=== PATIENT | female | born 1985 | race Caucasian/White ===

== ENCOUNTER → 2020-01-07 07:46 | Outpatient (CLI) | payer OTHER, MEDICAID, SELFPAY ==
--- NOTE | 2020-01-07 07:50 | DI.US.S_ITS ---
PROCEDURE: US OB >= 14 WEEKS FETUS INDICATIONS: ANATOMY OUTSIDE/PRIOR DATING DATA: First dating scan (date and location): [facility] Estimated date of delivery (LEN) from first dating scan: 04/17/2019 . TECHNIQUE: Real-time scanning was performed of the fetus, with image documentation and biometric measurements. Endovaginal scanning: No COMPARISON: None. FINDINGS: General: A single living intrauterine gestation is present. Presentation: Vertex. Placenta: Placental position is posterior , without previa. Amniotic fluid index: 15.8 cm, normal range is 5-24 cm. heart rate: 119 beats per minute. Maternal cervical canal: 3.1 cm long. Normal lower limit is 2.5 cm. biometrics: Biparietal diameter: 35 weeks 2 days Head circumference: 36 weeks 3 days Abdominal circumference: 34 weeks 3 days Femur length: 34 weeks 2 days Estimated gestational age from initial scan: 34 weeks 2 days Composite gestational age from present scan: 35 weeks 1 day Estimated weight and percentile: 2493 g; 57th percentile Measurement variability for biometric dating: +/- 7 days from 14 weeks to 15 weeks 6 days gestation, +/- 10 days from 16 weeks to 21 weeks 6 days gestation, +/- 2 weeks from 22 weeks to 27 weeks 6 days gestation, +/- 3 weeks for 28 weeks gestation or later. weight reference: 4500 g or EFW >90/95% is considered macrosomia or large for gestational age. EFW <10% is small for gestational age. EFW 5% or less is considered intra-uterine growth restriction. Anatomic survey: Neuro: Ventricles are non-dilated at less than 10 mm. Cisterna magna is normal at 3-11 mm. Cerebellum is normal in size and morphology. Nuchal skin fold: Normal at less than 6 mm between 14-21 weeks gestational age. Face: Not well seen. Spine: No evidence for spina bifida. Heart: 4-chambered heart is present, with normal ventricular outflow tracts. Diaphragm: Diaphragm is intact. Stomach: Left-sided stomach is present. Kidneys: No hydronephrosis. Normal is less than 5 mm in 2nd trimester, less than 7 mm in 3rd trimester. Cord: Not well seen. Bladder: Normal in size. Extremities: Suboptimally visualized. IMPRESSION: 1. Single living IUP redemonstrated and interval growth is normal with estimated weight 57th percentile. 2. Limited anatomic survey secondary to advanced gestational age. Dictated by: Joel Negron [facility] Interpreted: Riley Vegas MD on 01/07/2020 at 9:33 Approved by: Riley Vegas M.D. on 01/07/2020 at 17:19
[2020-01-07 09:04] LABS: Add Manual Diff / Slide Review NO; Basophils Absolute Auto 0 /uL (0-100); Basophils Percent Auto 0.5 % (0-2); Eosinophils Absolute Auto 100 /uL (0-450); Eosinophils Percent Auto 1.2 % (2-4); Hematocrit 35.1 % (36-46); Hemoglobin 11.9 g/dL (12.0-16.0); Lymphocytes Absolute Auto 2000 /uL (1100-4500); Mean Corpuscular HGB Conc 33.8 % (30-36); Mean Corpuscular Hemoglobin 33.4 PG (26-34); Mean Corpuscular Volume 98.9 fL (80-100); Monocytes Absolute Auto 900 /uL (0-900); Monocytes Percent Auto 10.4 % (3-14); Neutrophils Absolute Auto 5600 /uL (1500-7000); Neutrophils Percent Auto 64.9 % (50-75); Platelet Count 265 X10^3/uL (150-400); Red Blood Cell Count 3.55 X10^6/uL (4.0-5.2); Red Cell Distribution Width 13.6 % (11.6-14.8); White Blood Cell Count 8.7 X10^3/uL (4.5-11.0)
[2020-01-07 09:08] LABS: Hemoglobin A1C% w Est Avg Glu 4.9 % (4.0-6.0)
[2020-01-07 09:10] LABS: Appearance Urine UA CLEAR; Bilirubin Urine UA NEGATIVE (NEGATIVE); Color Urine UA YELLOW; Glucose Urine UA NEGATIVE (Negative); Ketones Urine UA NEGATIVE (NEGATIVE); Leukocyte Esterase Urine UA NEGATIVE (NEGATIVE); Nitrite Urine UA NEGATIVE (Negative); Occult Blood Urine UA NEGATIVE (Negative); Protein Urine UA NEGATIVE (Negative); Urobilinogen Urine UA 0.2 E.U./dL (0.2)
[2020-01-07 09:13] LABS: GTT (PREG) 1 Hour PP 50gm Dose 86 mg/dL (76-139)
[2020-01-07 16:44] LABS: Hepatitis B Surface Antigen NEGATIVE s/c (NEGATIVE); Rubella Antibody IgG 55.7 IU/mL (>15)
[2020-01-07 17:11] LABS: HIV 1 & 2 Ab/Ag 4th Gen Combo NEGATIVE (NEGATIVE); Hep C Virus Ab w/Reflex Quant NEGATIVE s/c (NEGATIVE)
[2020-01-08 04:36] LABS: RPR Screen Non Reactive (Non Reactive)
[2020-01-08 09:14] LABS: Varicella IgG Antibody 511 index (Immune >165)
== END ==
PROVIDERS: PCP Family Medicine; Referring Provider Family Medicine; Visit Provider Family Medicine
DX: Z34.83 Encounter for supervision of other normal pregnancy, third trimester (principal); Z3A.35 35 weeks gestation of pregnancy
CPT/HCPCS: 36415; 76811; 80055; 81003; 82950; 83036; 86787; 86803; 86850; 86900; 86901; 87086; 87389

== ENCOUNTER → 2020-01-11 16:17 | Outpatient (CLI) | payer OTHER, MEDICAID, SELFPAY ==
[2020-01-11 20:40] LABS: Ur Creatinine Normal (Normal); Ur Specific Gravity Normal (Normal); Urine pH Normal (Normal)
[2020-01-11 20:41] LABS: UR Morphine/Opiate cutoff 300 Negative (Negative); Urine Amphetamines Negative (Negative); Urine Barbiturates Negative (Negative); Urine Benzodiazepines Negative (Negative); Urine Cocaine Negative (Negative); Urine MDMA Negative (Negative); Urine Methadone Negative (Negative); Urine Methamphetamines Negative (Negative); Urine Oxycodone Negative (Negative); Urine Phencyclidine Negative (Negative); Urine Tetrahydrocannabinol Negative (Negative); Urine Tricyclic Antidepressant Negative (Negative)
== END ==
PROVIDERS: PCP Family Medicine; Visit Provider Family Medicine
DX: Z34.83 Encounter for supervision of other normal pregnancy, third trimester (principal); Z3A.34 34 weeks gestation of pregnancy
CPT/HCPCS: 80305; 87491; 87591

== ENCOUNTER 2020-01-19 15:49 | Outpatient (CLI) | payer OTHER, MEDICAID, SELFPAY | END 2020-01-19 17:45 | disposition home or self-care (01) | LOC: LABOR 16:28 → OB 01-20 10:24 | PROVIDERS: PCP Family Medicine; Referring Provider Family Medicine; Visit Provider Family Medicine | DX: O26.23 Pregnancy care for patient with recurrent pregnancy loss, third trimester (principal); Z3A.36 36 weeks gestation of pregnancy | CPT/HCPCS: 59025; 59050; G0378; G0379 ==

== ENCOUNTER → 2020-01-25 16:27 | Outpatient (CLI) | payer OTHER, MEDICAID, SELFPAY ==
[2020-01-26 12:54] LABS: Strep Grp B PCR POS for Grp B Strep
== END ==
PROVIDERS: PCP Family Medicine; Visit Provider Family Medicine
DX: Z34.83 Encounter for supervision of other normal pregnancy, third trimester (principal); Z20.2 Contact with and (suspected) exposure to infections with a predominantly sexual mode of transmission; Z3A.36 36 weeks gestation of pregnancy
CPT/HCPCS: 87210; 87653

== ENCOUNTER 2020-02-17 17:18 | Observation (INO) | payer OTHER, MEDICAID, SELFPAY ==
--- NOTE | 2020-02-17 19:30 | PM.OBTRLD ---
Visit Information Visit Information Date of evaluation: 02/17/20 Primary OB Provider: Jose Sánchez On-call OB Provider: Emilia Sahu Reason for Evaluation: Yes rule out labor Comments/Additional reasons for admission: 34 YO @ 40wks 1day here for evaluation of mild cramping with low back pain. Lives in [place] and just wants to check and be safe before going home. +FM. No VB or LOF. Uncomfortable but not yet breathing through contractions. Uncomplicated PN care w/ . States provider usually unable to reach her cervix. Vital Signs Vital Signs: BP 112/74, HR-90bpm, T97.0 F Temporal PFSH Medical History Anxiety (Acute) Depression (Acute) History of prediabetes (Acute ~2017) Late care affecting (Acute ~12/2019) Migraine (Acute) (spontaneous vaginal delivery) (Acute ~2006) UTI (urinary tract infection) (Acute ~12/2019) Surgical History H/O dilation and curettage (Acute ~08/2016) Lamar teeth removed (Acute) Family History Mother History of radical hysterectomy Father Asthma Grandfather No problems noted. Grandmother No problems noted. Grandfather Stroke Grandmother Congestive heart failure Embolism and thrombosis Sister Metastatic breast cancer Sister No problems noted. 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 Evaluation Evaluation Baseline heart rate: 125 Variability: Moderate (11-25) monitor accelerations: Present monitor decelerations: Absent Contraction Frequency (minutes): 6 Uterine Contraction Intensity: Mild Category of Tracing: Reactive Comments: RN unable to reach cervix on initial exam. Repeat CE deferred after 2 hours of observation as there has been no change and ctx remain irregular and mild. Diagnosis, Plan/Disposition Final Diagnosis (1) : Status: Acute Problem details: Mild, irregular uterine cramping, not in labor Plan/Disposition Plan: Given 2 hours of observation w/ walk and return and no change noted during that time, will discharge to home. Pt plans to go to her mother's in [place] for the night. Encouraged her to call and return if contractions intensify, LOF, VB or decreased FM. Pt agrees and will follow-up with her primary OB provider as previously scheduled. OB Disposition: home
== END 2020-02-17 19:35 | disposition home or self-care (01) ==
PROVIDERS: Admitting Provider Nurse Practitioner Obstetrics & Gynecology; PCP Family Medicine; Referring Provider Nurse Practitioner Obstetrics & Gynecology; Visit Provider Nurse Practitioner Obstetrics & Gynecology
DX: O48.0 Post-term pregnancy (principal); Z3A.40 40 weeks gestation of pregnancy
CPT/HCPCS: 59025; 59050; G0378; G0379

== ENCOUNTER 2020-02-22 07:47 | Inpatient (IN) | payer OTHER, MEDICAID, SELFPAY ==
--- NOTE | 2020-02-22 08:05 | P.HPOB_ITS ---
OB HPI Date/Time Date of admission: 02/22/20 Date Patient Seen: 02/22/20 Time Patient Seen: 08:05 History of Present Condition Chief complaint: Labor & Delivery : 5 Para: 2 Estimated Date of Delivery: 02/18/20 Narrative: Yandy Davis is a 34 year old female G5 para 2 estimated due date of 02/18/2020 40 weeks and 4 7th days consistent with 3rd trimester ultrasound dating. Patient comes into the labor and delivery floor in active labor. Patient states she started idalia approximately 6:00 a.m. this morning. Patient arrived to the center an hour later. On examination her vital signs were stable she was afebrile. Contractions were uncomfortable. Patient had an IV started. COVID swab was done. Patient is GBS positive and was given 1 dose of penicillin. On examination. Patient had heart tones were 130 t o 140s category 1 tracing. Her contractions were every 3-5 minutes. She had no loss of fluid. Her cervical exam showed her to be 6 cm 0 to +1 station 90% effaced. Intact membranes. History of Present care: limited care Dating criteria: based on 3rd trimester US only Ultrasounds: normal mid trimester US Obstetrical complications: none Medical complications: none Preadmission Labs Blood type: A (+) positive -: Antibody screen: negative, GBS status: positive, HBsAG: negative, HIV: negative and RPR/VDLR: negative -: Chlamydia screen: not detected and Gonorrhea screen: not detected -: Rubella: immune and Varicella: immune HCAB: negative 1 hr GTT: 86 PFSH Medical History Anxiety Depression History of prediabetes (~2017) Late care affecting (~12/2019) Migraine (spontaneous vaginal delivery) (~2006) UTI (urinary tract infection) (~12/2019) Surgical History H/O dilation and curettage (~08/2016) Seltzer teeth removed Family History Mother History of radical hysterectomy Father Asthma Grandfather No problems noted. Grandmother No problems noted. Grandfather Stroke Grandmother Congestive heart failure Embolism and thrombosis Sister Metastatic breast cancer Sister No problems noted. 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) occupational status: unemployed current occupational exposures/hazards: No Previous occupational history: SHIP YARD ELECTRICAL PERSON reji/hinduism: Quaker special reji needs: No Smoking Status: Never smoker second hand exposure: No alcohol intake: former (pre- : occasional ) substance use type: does not use Meds Home Medications and Allergies Home Medications Medication Instructions Recorded Confirmed Type omega-3 fatty acids 1,000 mg 1,000 mg PO DAILY 01/06/20 02/16/20 History capsule prenat.vits,margarita,[id number] 1 tab PO DAILY 01/06/20 02/16/20 History omeprazole 20 mg capsule,delayed 20 mg PO DAILY #60 cap 02/09/20 02/16/20 Rx release Allergies Allergy/AdvReac Type Severity Reaction Status Date / Time titanium Allergy Intermediate Contact Verified 02/16/20 16:13 Dermatitis yves Allergy Intermediate Contact Uncoded 02/16/20 16:13 Dermatitis sodium cally sulphate Allergy Intermediate Rash Uncoded 02/16/20 16:13 Exam Narrative Exam Narrative: . General: Alert no apparent distress. Affect is appropriate. Idalia it is uncomfortable. HEENT: Neck is supple without lymphadenopathy pupils equal round and reactive. Cardio: S1-S2 regular rate and rhythm. Respiratory: Lungs clear to auscultation. Abdomen: Gravid. Extremities: Normal deep tendon reflexes trace edema. Objective Labs Result Diagrams: 02/22/20 07:50 Assessment and Plan Assessment and Plan Assessment and Plan narrative: 34-year-old female G5 para 2 at 40 and 4 7th weeks gestational age in active labor. Labor care orders were written for. At this time patient is eminently delivering. labs were reviewed as well as record. Patient's blood pressure is normal she is afebrile. Patient has intact membranes and is at 6 cm. heart tones are category 1. Anticipate spontaneous vaginal delivery.
[2020-02-22 08:12] LABS: Add Manual Diff / Slide Review NO; Basophils Absolute Auto 100 /uL (0-100); Basophils Percent Auto 0.7 % (0-2); Eosinophils Absolute Auto 100 /uL (0-450); Eosinophils Percent Auto 1.2 % (2-4); Hematocrit 36.8 % (36-46); Hemoglobin 12.3 g/dL (12.0-16.0); Lymphocytes Absolute Auto 2700 /uL (1100-4500); Mean Corpuscular HGB Conc 33.3 % (30-36); Monocytes Absolute Auto 1300 /uL (0-900); Monocytes Percent Auto 11.3 % (3-14); Neutrophils Absolute Auto 7500 /uL (1500-7000); Neutrophils Percent Auto 63.8 % (50-75); Platelet Count 330 X10^3/uL (150-400); Red Blood Cell Count 3.84 X10^6/uL (4.0-5.2); Red Cell Distribution Width 13.9 % (11.6-14.8); White Blood Cell Count 11.8 X10^3/uL (4.5-11.0)
[2020-02-22 08:21] LABS: COVID19 -Nasal RAPID Negative (Negative)
[2020-02-22 09:00] VITALS: BP 141/77
[2020-02-22 10:50] VITALS: TEMP 35.9
[2020-02-22] MEDS: fentaNYL 100 MCG/2 ML INJ 25 MCG IV ×2 (10:50→11:55)
[2020-02-22] MEDS: OXYTOCIN 10 UNIT/ML VIAL 20 UNIT (11:50)
--- NOTE | 2020-02-22 12:17 | P.PCN_ITS ---
Procedures Date/Time Date of procedure: 02/22/20 Time of procedure: 12:18 General Procedure description: Vaginal delivery procedure note Stage I of labor. Approximately 3 hours. Patient began idalia approximately 6:00 a.m. this morning. Contraction became more uncomfortable and intolerable and presented to the labor and delivery floor in active labor. At home patient did not have rupture of membranes. On arrival she had good heart tones vital signs were table patient was idalia uncomfortably with 6 cm and 90% effaced. Patient over the ensuing our progressed nicely to complete. Patient use nitrous oxide for pain relief. Patient may good progress through stage I of labor approximately 8 cm patient had rupture of membranes with clear amniotic fluid. Rupture membranes patient was a 0+ 1 station. Had copious amounts of clear fluid. Stage I of labor had heart category 1 and category 2. Stage II of labor approximately 1 hour and a half. During stage II of labor patient had category 2 heart tracing. Patient pushed in various positions on side back and hands and 4s as she was on block to. During the stage II labor patient had some head compression. Think initially baby's position was OPP and with position changes patient became OA. Patient made good descent through the canal on when she got to +2 station for approximately half an hours patient pushing became less effective her pain increased and became intolerable to the point where pushing was no longer effective. The point VAC was placed. The patient pushed x2 with good descent of the baby to +3 station with a VAC wit h 2 pushes with no pop offs. Approximately 5 minutes later patient went to deliver vaginally a viable male infant in the occiput anterior position. Patient the delivery of the head had no nuchal cord the shoulders were then spontaneously delivered with mild assistance. Baby was placed on the mother's abdomen and mom had spontaneous cry. Stage III of labor 20 minutes delivery of intact placenta with three-vessel cord. Cord blood sample was taken. Mom and baby were resting comfortably afterwards. Pitocin 10 units IM was given. About an hour afterwards patient had about 200 cc of blood loss and had at that ago of normal saline with 20 additional units of Pitocin. Discomfort patient was given IV fentanyl 2 doses. And on oral Percocet. Patient was doing well after that. He was eating and tolerating her diet. Mom and baby resting comfortably
[2020-02-22] MEDS: OXYCODONE/ACETAMINOPHEN 5/325 TABLET 2 TAB PO ×2 (13:35→19:16)
[2020-02-22] MEDS: IBUPROFEN 600 MG TABLET PO (20:19)
[2020-02-23] MEDS: IBUPROFEN 600 MG TABLET PO (03:44)
[2020-02-23 06:32] LABS: Hematocrit 32.1 % (36-46); Hemoglobin 10.7 g/dL (12.0-16.0)
--- NOTE | 2020-02-23 08:09 | PM.DS.1 ---
History of Present Illness History of Present Illness Chief complaint: maternity Discharge Providers Provider Date of admission: 02/22/20 07:47 Discharge Date: 02/23/20 Primary care physician: Jose Sánchez MD Consults: 02/23/20 10:31 Consult to Chief Power Dispatcher Routine Comment: Discharge provider: Jose Sánchez MD Summary Hospital Course Discharge Diagnosis: 34-year-old female G5 now para 3 status post vaginal delivery of male Routine care. Hospital Course: 34-year-old female admitted to the hospital in active labor. Patient is a G5 para 3 of 40 and 4 7th weeks consistent with gestational age. Patient went on to deliver a viable male with Apgars 8 and 9 and weight 9 lb 12 oz. Mom had some mild postoperative bleeding required Pitocin IM as well as Pitocin IV. Bleeding was not controlled. Her hemoglobin hematocrit today is within normal range after . She initially had some uterine cramping and tailbone pain this was controlled with IV and oral pain medication. This time patient is tolerating her diet. Ambulating well urinating without difficulty. No bowel movement yet. Vital signs are stable and she is afebrile. And bleeding as as anticipated. Exam Vital Signs (past 8 hours): General: Alert no apparent distress. Affect is appropriate. Garth it is uncomfortable. HEENT: Neck is supple without lymphadenopathy pupils equal round and reactive. Cardio: S1-S2 regular rate and rhythm. Respiratory: Lungs clear to auscultation. Abdomen: Uterus firm. . Extremities: Normal deep tendon reflexes trace edema. Objective Labs Result Diagrams: 02/23/20 06:19 Labs: Laboratory Results - last 24 hr 02/22/20 02/22/20 02/22/20 07:50 07:50 08:00 WBC 11.8 H RBC 3.84 L Hgb 12.3 Hct 36.8 MCV 96.0 MCH 32.0 MCHC 33.3 RDW 13.9 Plt Count 330 Neut % (Auto) 63.8 Lymph % (Auto) 23.0 L Sully % (Auto) 11.3 Eos % (Auto) 1.2 L Baso % (Auto) 0.7 Neut # (Auto) 7500 H Lymph # (Auto) 2700 Sully # (Auto) 1300 H Eos # (Auto) 100 Baso # (Auto) 100 COVID-19 PCR Negative Blood Type A Positive Antibody Screen Negative 02/23/20 06:19 WBC RBC Hgb 10.7 L Hct 32.1 L MCV MCH MCHC RDW Plt Count Neut % (Auto) Lymph % (Auto) Sully % (Auto) Eos % (Auto) Baso % (Auto) Neut # (Auto) Lymph # (Auto) Sully # (Auto) Eos # (Auto) Baso # (Auto) COVID-19 PCR Blood Type Antibody Screen Discharge Plan Discharge Plan Patient Disposition: Home Discharge orders & Medications Prescriptions: New ibuprofen 600 mg Tablet 600 mg PO Q6HR PRN (Reason: Fever/Mild Pain (1-3)) Qty: 30 RF: 0 docusate sodium [DOK] 100 mg Capsule 100 mg PO BID Qty: 30 RF: 0 Continued prenat.vits,margarita,[id number]-ucjw-hossn Tablet 1 tab PO DAILY RF: 0 omega-3 fatty acids [Fish Oil Concentrate] 1,000 mg capsule 1,000 mg PO DAILY RF: 0 Discontinued omeprazole 20 mg capsule,delayed release(DR/EC) 20 mg PO DAILY Qty: 60 RF: 1 Follow up/Referrals: Jose Sánchez MD [Primary Care Provider] - Visit Report/Discharge Packet Visit Report Forms: Patient Portal/API, Stroke Signs & Symptoms Discharge Data Primary Care Provider: Jose Sánchez Attending Provider: Jose Sánchez Admit Date/Time: 02/22/20 07:47
[2020-02-23] MEDS: PRENATAL VIT,CALC/IRON/FOLIC 1 TABLET 1 TAB PO (08:11)
[2020-02-23] MEDS: DOCUSATE 100 MG CAPSULE PO (08:11)
[2020-02-23] MEDS: OXYCODONE/ACETAMINOPHEN 5/325 TABLET 2 TAB PO (08:15)
[2020-02-23 10:15] VITALS: BP 94/55; PULSE 78; RESP 16; TEMP 37
== END 2020-02-23 11:08 | disposition home or self-care (01) | DRG 560 ==
PROVIDERS: Admitting Provider Family Medicine; PCP Family Medicine; Referring Provider Family Medicine; Visit Provider Family Medicine
DX: O99.824 Streptococcus B carrier state complicating childbirth (principal); O76 Abnormality in fetal heart rate and rhythm complicating labor and delivery; O72.1 Other immediate postpartum hemorrhage; Z37.0 Single live birth; Z3A.40 40 weeks gestation of pregnancy; Z11.59 Encounter for screening for other viral diseases
CPT/HCPCS: 36415; 59050; 59409; 85014; 85018; 85025; 86850; 86900; 86901; 87635; G0379; J2590; J3010